=== PATIENT | female | born 1960 | race African-American/Black ===

== ENCOUNTER 2017-03-01 10:09 | Emergency (ER) | payer MEDICAID, OTHER ==
[~2017-03-01] VITALS: Ht 160 cm; Wt 119.0 kg
[~2017-03-01 10:09] MED LIST: ALBU6.7H INH; ATOR40TA16 PO; CPAP; ERGO1CAP10 PO; FLUO20TA20 PO; GABA600T PO; HYDR-3366 PO; METF500T PO; NYST15T TOPICAL; OMEP20TA93 PO; ONDA8TAB7 PO; ZOLP10TA3 PO; walker
[2017-03-01 10:10] VITALS: BP 143/79; PULSE 76; RESP 16; TEMP 99.5; O2SAT 97
--- NOTE | 2017-03-01 10:38 | PD ---
HPI . Respiratory infection Chief Complaint: Cold / Flu Symptoms Time Seen by Provider: 10:25 Travel History International Travel<30 days: No Contact w/Intl Traveler<30days: No Traveled to known affect area: No History of Present Illness HPI This patient presents with cold symptoms. Onset was 3 days ago. She states that it started as feeling like there was "trash" in her throat. She then developed a cough. She developed a cough productive of yellow sputum last night. She states that she is coughing so much that she is incontinent of urine. She states the DayQuil and NyQuil have not really helped. She states that she started taking Robitussin-DM yesterday PFSH Past Medical History Asthma: Yes Depression: Yes Cancer: No Diabetes: No Hepatitis: No Hiatal Hernia: No Thyroid Disease: No Past Surgical History Gynecologic Surgery: Yes (D&C; HYSTERECTOMY) Hysterectomy: Yes Pacemaker: No Other Surgery: Yes Social History Alcohol Use: Yes Tobacco Use: No Substance Use: No Allergies-Medications (Allergen,Severity, Reaction): Coded Allergies: naproxen (Unverified Allergy, Severe, 03/01/17) ITCHING ibuprofen (Unverified Adverse Reaction, Severe, 03/01/17) UPSETS STOMACH Reported Meds & Prescriptions Reported Meds & Active Scripts Active [place] (Hydrocodone-Acetaminophen) 10-325 Mg Tab 1 Tab PO Q6HR PRN Zolpidem (Zolpidem Tartrate) 10 Mg Tab 10 Mg PO HS PRN Nystatin Topical (Nystatin) 100,000 unit/gm Cream 1 Applic TOPICAL BID Ondansetron (Ondansetron HCl) 8 Mg Tab 8 Mg PO TID Metformin (Metformin HCl) 500 Mg Tab 500 Mg PO BIDPC With meals Atorvastatin (Atorvastatin Calcium) 40 Mg Tab 40 Mg PO HS [walker] Unit Vitamin D (Ergocalciferol) 50,000 Unit Cap 50,000 Units PO Q7D Gabapentin 600 Mg Tab 600 Mg PO HS [Cpap] Units Proventil Hfa (Albuterol Sulfate) 6.7 Gm Aero 2 Puff INH Q6 PRN * SHAKE WELL BEFORE USE * Reported Omeprazole 20 Mg Tab 20 Mg PO DAILY Fluoxetine Hcl (Fluoxetine HCl) 20 Mg Tab 40 Mg PO DAILY Review of Systems Except as stated in HPI: all other systems reviewed are Neg General / Constitutional: No: Fever, Chills HENT: Positive: Sore Throat, Rhinorrhea, Congestion Respiratory: Positive: Cough Genitourinary: Positive: Incontinence Physical Exam Narrative GENERAL: Awake and alert and in no acute distress. SKIN: Warm and dry. HEAD: Normocephalic/atraumatic. EYES: Pupils are equal. Extraocular movements are intact. ENT: Whitish discharge in the hospitals. Mild edema of the nasal turbinates. Oropharynx is clear. NECK: Normal range of motion. No cervical lymphadenopathy. CARDIOVASCULAR: Regular rate and rhythm. Heart sounds are normal. RESPIRATORY: Nonlabored respirations. Lungs are clear with full air movement throughout. MUSCULOSKELETAL: Atraumatic. NEUROLOGICAL: Nonfocal. PSYCHIATRIC: Appropriate mood and affect. Data Data Last Documented VS Vital Signs Date Time Temp Pulse Resp B/P (MAP) Pulse Ox O2 Delivery O2 Flow Rate FiO2 03/01/17 10:10 99.5 76 16 143/79 (100) 97 Room Air Orders Orders Ed Discharge Order (03/01/17 10:34) MDM Medical Decision Making Medical Screen Exam Complete: Yes Emergency Medical Condition: Yes Differential Diagnosis Differential diagnosis includes but is not limited to influenza, upper respiratory infection, bronchitis, pneumonia Narrative Course This patient presents with a 3 day history of cold symptoms. She has no worrisome signs or symptoms. She will be discharged to home with instructions in symptomatic care. Diagnosis Primary Impression: Upper respiratory disease Patient Instructions: General Instructions, Upper Respiratory Infection (ED) Departure Forms: Tests/Procedures Additional Instructions: I recommend the use of a Neti Pot. You may use a nasal spray such as Afrin for up to 3 days as needed for nasal congestion. You may take an [id number]-sgvklvs antihistamine such as Zyrtec, Lety or Claritin as needed for runny secretions. You may take pseudoephedrine as needed for congestion. You will need to sign for this at the pharmacy. You may take plain Mucinex, 1200 mg twice a day as needed for thick secretions. You may take a cough syrup such as Delsym as needed for cough. Motrin as needed for fever and body aches. Throat lozenges/sprays as needed for sore throat. Warm salt water gargles for sore throat. Hot tea with lemon and honey also helps soothe a sore throat. Disposition: 01 DISCHARGE HOME Condition: Stable Claudia Brennan MD Mar 01, 2017 10:38
[2017-03-14] MEDS ORDERED: ZOLP10TA3 PO (15:43)
[2017-03-14] MEDS ORDERED: HYDR-3366 PO (15:43)
== END 2017-03-01 11:15 | disposition home or self-care (01) ==
LOC: NEPD 10:09
DX: J39.9 Disease of upper respiratory tract, unspecified (principal); J45.909 Unspecified asthma, uncomplicated; R32 Unspecified urinary incontinence; F32.9 Major depressive disorder, single episode, unspecified
CPT/HCPCS: 99282